=== PATIENT | female | born 1990 | race Caucasian/White ===

== ENCOUNTER 2019-05-14 09:20 | Emergency (ER) | payer OTHER ==
--- NOTE | 2019-05-14 10:04 | UC ---
Skin Complaint HPI - HPI Summary HPI Summary: 28-year-old female who has a skin infection in her left antecubital area. She states one month ago she received a tattoo in her left inner forearm. She states a small pimple started at the proximal portion of the tattoo, improved for short time and then became worse. She states it is more red and painful and today when she change the Band-Aid a greenish "plugged" of pus came out. She denies any fever or chills. She denies any injections in that area. - History of Current Complaint Chief Complaint: UCSkin Time Seen by Provider: 05/14/19 09:58 Stated Complaint: SKIN ISSUE Hx Obtained From: Patient Hx Last Menstrual Period: 05/03/19 Onset/Duration: Gradual Onset Skin Exposure Onset/Duration: Days Ago Onset Severity: Mild Current Severity: Mild Pain Intensity: 3 Location: Other Character: Pain, Redness - Left antecubital area. Aggravating Factor(s): Touch Alleviating Factor(s): Heat Associated Signs & Symptoms: Positive: Drainage - Greenish yellow pus drainage. - Allergy/Home Medications Allergies/Adverse Reactions: Allergies Allergy/AdvReac Type Severity Reaction Status Date / Time No Known Allergies Allergy Verified 05/14/19 09:45 PMH/Surg Hx/FS Hx/Imm Hx Previously Healthy: Yes GI/ History: Diverticulitis - Surgical History Surgical History: Yes Surgery Procedure, Year, and Place: hand - Family History Known Family History: Positive: Non-Contributory - Social History Occupation: Employed Full-time Alcohol Use: None Substance Use Type: Marijuana Smoking Status (MU): Light Every Day Tobacco Smoker Review of Systems All Other Systems Reviewed And Are Negative: Yes Skin: Positive: Other - Reddened area left antecubital. Eyes: Positive: Drainage - Greenish yellow drainage today. Has been doing warm compresses when possible. Is Patient Immunocompromised?: No Physical Exam Triage Information Reviewed: Yes Appearance: Well-Appearing, No Pain Distress, Well-Nourished Vital Signs: Initial Vital Signs Temp 98 F 05/14/19 09:40 Pulse 78 05/14/19 09:40 Resp 16 05/14/19 09:40 BP 124/87 05/14/19 09:40 Pulse Ox 100 05/14/19 09:40 Vital Signs Reviewed: Yes Musculoskeletal Exam: Normal Neurological Exam: Normal Psychological Exam: Normal Skin: Positive: Other - Mild erythema in the shape of the Band-Aid she was using. No antecubital or axillary lymph node enlargement. Patient has an open wound approximate 4 mm in diameter with green pus present however no pus expressed. It has some mild hardness around that measuring approximately 1.0 cm in diameter. It streaks. Course/Dx - Course Course Of Treatment: Patient is comfortable here. Last tetanus was unknown therefore she was given Tdap tetanus immunization. A dry sterile gauze dressing and Coban dressing was applied. She is to avoid Band-Aids because of the skin reaction present. - Diagnoses Provider Diagnosis: Cellulitis Discharge ED - Sign-Out/Discharge Documenting (check all that apply): Patient Departure All imaging exams completed and their final reports reviewed: No Studies - Discharge Plan Condition: Good Disposition: HOME Prescriptions: Sulfamethox/Trimethoprim DS* [Bactrim DS 800/160 TAB*] 1 tab PO BID 10 Days #20 tab Patient Education Materials: Cellulitis (DC) Referrals: [facility] [Outside] No Primary Care Phys,NOPCP [Primary Care Provider] - Additional Instructions: Warm moist compresses 4-6 times a day for 20 minutes each time. You were given Tdap tetanus immunization which is good for 8-10 years. Change dressing daily. Definite follow up at [facility] if no improvement in 4 or 5 days. Take the Bactrim with food. - Billing Disposition and Condition Condition: GOOD Disposition: Home
[2019-05-14] MEDS ORDERED: Tetan/Diph/Pertus SYR(Tdap)* 0.5 ML SYR(BOOSTRIX) use SYR contains LATEX IM ONE (10:10)
== END 2019-05-14 10:24 | disposition home or self-care (01) ==
LOC: UCEAST 09:20
DX: L03.114 Cellulitis of left upper limb (principal); Z23 Encounter for immunization; F17.290 Nicotine dependence, other tobacco product, uncomplicated
CPT/HCPCS: 90471; 90715; 99202; G0463

== ENCOUNTER 2019-08-05 08:00 | Emergency (ER) | payer OTHER ==
[2019-08-05 08:20] VITALS: BP 125/69
[2019-08-05 08:37] LABS: Influenza B Molecular POSITIVE (Negative)
--- NOTE | 2019-08-05 08:47 | UC ---
UC General HPI - HPI Summary HPI Summary: Symptoms started yesterday - Fever, sore throat, body aches, cough and congestion. Has been nauseated but no vomiting or diarrhea. Quit smoking 1 month ago. Has never needed inhalers in the past. Good PO. Works as a grocery department manager. No flu shot Meds: reviewed - History of Current Complaint Chief Complaint: UCGeneralIllness Stated Complaint: FEVER,BODY ACHES,COUGH Time Seen by Provider: 08/05/19 08:18 Hx Last Menstrual Period: 08/04/19 Pain Intensity: 5 - Allergy/Home Medications Allergies/Adverse Reactions: Allergies Allergy/AdvReac Type Severity Reaction Status Date / Time acetaminophen Allergy See Comment Verified 08/05/19 08:15 Home Medications: Home Medications Ibuprofen 400 mg PO ONCE PRN 08/05/19 [History Confirmed 08/05/19] PMH/Surg Hx/FS Hx/Imm Hx Previously Healthy: Yes - Surgical History Surgical History: Yes Surgery Procedure, Year, and Place: hand. endoscopy. colonoscopy - Family History Known Family History: Positive: Non-Contributory - Social History Alcohol Use: None Substance Use Type: Marijuana Smoking Status (MU): Current Some Day Smoker Review of Systems All Other Systems Reviewed And Are Negative: Yes Constitutional: Positive: Fever ENT: Positive: Sore Throat, Sinus Congestion Respiratory: Positive: Cough Gastrointestinal: Positive: Nausea Physical Exam Triage Information Reviewed: Yes Appearance: Other: - mildly ill appearing Vital Signs: Initial Vital Signs Temp 100.2 F 08/05/19 08:10 Pulse 102 08/05/19 08:10 Resp 16 08/05/19 08:10 BP 125/69 08/05/19 08:10 Pulse Ox 97 08/05/19 08:10 Vital Signs Reviewed: Yes ENT: Positive: Pharyngeal erythema, Nasal congestion, Other - TM's clear fluid b /l Neck: Positive: Supple, Nontender Respiratory: Positive: Lungs clear, Decreased breath sounds Cardiovascular: Positive: No Murmur, Tachycardia Course/Dx - Course Course Of Treatment: This is a 28 yr old with flu b Assessment Nontoxic appearing Plan Start Tamiflu as prescribed Continue to rest, fluids, ibuprofen as needed for pain/fever If symptoms persist or worsen, recommend follow up with PCP or return to urgent care - Diagnoses Provider Diagnosis: Influenza Discharge ED - Sign-Out/Discharge Documenting (check all that apply): Patient Departure All imaging exams completed and their final reports reviewed: No Studies - Discharge Plan Condition: Fair Disposition: HOME Patient Education Materials: Influenza (ED) Forms: *Work Release Referrals: No Primary Care Phys,NOPCP [Primary Care Provider] - Aster Padilla DO [Doctor of Osteopathy] - Additional Instructions: Start Tamiflu as prescribed Continue to rest, fluids, ibuprofen as needed for pain/fever If symptoms persist or worsen, recommend follow up with PCP or return to urgent care - Billing Disposition and Condition Condition: FAIR Disposition: Home
== END 2019-08-05 09:05 | disposition home or self-care (01) ==
LOC: UCEAST 08:00
DX: J11.1 Influenza due to unidentified influenza virus with other respiratory manifestations (principal); R11.0 Nausea; F17.200 Nicotine dependence, unspecified, uncomplicated; Z88.6 Allergy status to analgesic agent
CPT/HCPCS: 99211; G0463